=== PATIENT | female | born 1975 | race American Indian/Alaskan Native ===

== ENCOUNTER 2020-05-04 00:55 | Emergency (ER) | payer SELFPAY ==
[2020-05-04 01:17] VITALS: BP 112/79
[2020-05-04 01:42] LABS: Basophils % (Auto) 0.5 % (0.0-1.8); Eosinophils # (Auto) 0.1 K/mm3 (0.0-0.4); Eosinophils % (Auto) 1.3 % (0.0-4.3); Hematocrit 35.4 % (30.3-42.9); Hemoglobin 11.7 gm/dl (10.1-14.3); Lymphocytes # (Auto) 3.1 K/mm3 (1.2-5.4); Lymphocytes % (Auto) 34.8 % (13.4-35.0); Mean Corpuscular HGB Conc 33 % (30-34); Mean Corpuscular Volume 82 fl (79-97); Monocytes # (Auto) 0.6 K/mm3 (0.0-0.8); Monocytes % (Auto) 7.2 % (0.0-7.3); Platelet Count 283 K/mm3 (140-440); Red Cell Distribution Width 15.9 % (13.2-15.2)
[2020-05-04 01:58] LABS: Bilirubin,Urine NEG (Negative); Blood,Urine NEG (Negative); Color,Urine Colorless (Yellow); Protein,Urine <15 mg/dL mg/dL (Negative); RBC,Urine < 1.0 /HPF (0.0-6.0); Urobilinogen,Urine < 2.0 mg/dL (<2.0); WBC,Urine < 1.0 /HPF (0.0-6.0)
[2020-05-04 02:07] LABS: Alanine Aminotransferase 23 units/L (7-56); Albumin 4.2 g/dL (3.9-5); Blood Urea Nitrogen 14 mg/dL (7-17); Hemolysis Index 4
[2020-05-04 02:08] LABS: BUN/Creatinine Ratio 23
[2020-05-04] MEDS ORDERED: KETOROLAC 30 MG/1 ML INJ IM ONE (05:45)
--- NOTE | 2020-05-04 05:56 | Emergency Department Report ---
ED Abdominal Pain HPI - General Chief Complaint: Abdominal Pain Stated Complaint: ABD PAIN Source: patient, EMS Mode of arrival: Ambulatory Limitations: No Limitations - History of Present Illness Initial Comments: Patient is a 44-year-old -[place] female with a history of hypertension who presents to the ED with complaint of acute onset persistent left lower quadrant pain and left flank pain for the last 1 month. Patient states the pain is constant and persistent since onset, and worsened in the last 3 days. Patient denies fever, chills, nausea, vomiting, dysuria, urinary frequency and urgency, vaginal discharge, dyspareunia, vaginal bleeding, dizziness, syncope, low back pain, traumatic injury, heavy lifting or diarrhea. MD Complaint: abdominal pain (LLQ PAIN), flank pain (Left) -: Sudden, month(s) (1) Location: LLQ, L flank Radiation: LLQ, L flank Migration to: no migration Severity scale (0 -10): 6 Quality: cramping, sharp Consistency: constant Improves With: nothing Worsens With: nothing Associated Symptoms: denies other symptoms. denies: nausea, vomiting, diarrhea, fever, chills, constipation, dysuria, hematemesis, melena, hematuria, anorexia - Related Data LMP Date: 04/25/20 Previous Rx's Medication Instructions Recorded Last Taken Type Dicyclomine [Bentyl] 20 mg PO Q6H PRN #24 tablet 05/04/20 Unknown Rx Docusate Sodium [Colace CAP] 100 mg PO BID PRN #60 capsule 05/04/20 Unknown Rx Ketorolac [Toradol] 10 mg PO Q8H PRN #20 tablet 05/04/20 Unknown Rx Magnesium Citrate 296 ml PO ONCE #1 bottle 05/04/20 Unknown Rx Ondansetron [Zofran Odt] 4 mg PO Q6HR PRN #15 tab.rapdis 05/04/20 Unknown Rx Allergies Allergy/AdvReac Type Severity Reaction Status Date / Time No Known Allergies Allergy Unverified 05/04/20 01:09 ED Review of Systems ROS: Stated complaint: ABD PAIN Other details as noted in HPI Constitutional: denies: chills, fever Eyes: denies: eye pain, eye discharge, vision change ENT: denies: ear pain, throat pain Respiratory: denies: cough, shortness of breath, wheezing Cardiovascular: denies: chest pain, palpitations Endocrine: no symptoms reported Gastrointestinal: abdominal pain (Left lower quadrant and left flank pain). denies: nausea, diarrhea Genitourinary: denies: urgency, dysuria, discharge Musculoskeletal: denies: back pain, joint swelling, arthralgia Skin: denies: rash, lesions Neurological: denies: headache, weakness, paresthesias Psychiatric: denies: anxiety, depression Hematological/Lymphatic: denies: easy bleeding, easy bruising ED Past Medical Hx - Past Medical History Previous Medical History?: Yes Hx Hypertension: Yes - Surgical History Past Surgical History?: Yes Additional Surgical History: x 4 - Social History Smoking Status: Unknown if ever smoked - Medications Home Medications: Home Medications Medication Instructions Recorded Confirmed Last Taken Type Dicyclomine [Bentyl] 20 mg PO Q6H PRN #24 tablet 05/04/20 Unknown Rx Docusate Sodium [Colace CAP] 100 mg PO BID PRN #60 capsule 05/04/20 Unknown Rx Ketorolac [Toradol] 10 mg PO Q8H PRN #20 tablet 05/04/20 Unknown Rx Magnesium Citrate 296 ml PO ONCE #1 bottle 05/04/20 Unknown Rx Ondansetron [Zofran Odt] 4 mg PO Q6HR PRN #15 tab.rapdis 05/04/20 Unknown Rx ED Physical Exam - General Limitations: No Limitations General appearance: alert, in no apparent distress - Head Head exam: Present: atraumatic, normocephalic, normal inspection - Eye Eye exam: Present: normal appearance, PERRL, EOMI Pupils: Present: normal accommodation - ENT ENT exam: Present: normal exam, normal orophraynx, mucous membranes moist, TM's normal bilaterally, normal external ear exam - Neck Neck exam: Present: normal inspection, full ROM. Absent: tenderness - Respiratory Respiratory exam: Present: normal lung sounds bilaterally. Absent: respiratory distress, wheezes, rales, rhonchi, chest wall tenderness, accessory muscle use, decreased breath sounds, prolonged expiratory - Cardiovascular Cardiovascular Exam: Present: regular rate, normal rhythm, normal heart sounds. Absent: systolic murmur, diastolic murmur, rubs, gallop - GI/Abdominal GI/Abdominal exam: Present: soft, tenderness (Palpable left lower quadrant tenderness), normal bowel sounds. Absent: guarding, rebound, hyperactive bowel sounds, hypoactive bowel sounds, organomegaly - Extremities Exam Extremities exam: Present: normal inspection, full ROM, normal capillary refill - Back Exam Back exam: Present: normal inspection, full ROM. Absent: tenderness, CVA tenderness (R), CVA tenderness (L), muscle spasm, paraspinal tenderness - Neurological Exam Neurological exam: Present: alert, oriented X3, CN II-XII intact, normal gait, reflexes normal - Psychiatric Psychiatric exam: Present: normal affect, normal mood - Skin Skin exam: Present: warm, dry, intact, normal color. Absent: rash ED Course Vital Signs 05/04/20 01:15 Temperature 97.8 F Pulse Rate 79 Respiratory 17 Rate Blood Pressure 112/79 O2 Sat by Pulse 98 Oximetry ED Medical Decision Making - Lab Data Result diagrams: 05/04/20 01:25 05/04/20 01:25 - Radiology Data Radiology results: report reviewed, image reviewed Findings [address] [address] Cat Scan Report Signed Patient: BEBE WOOD MR#: [id number] : 1975 Acct:[id number] Age/Sex: 44 / F ADM Date: 05/04/20 Loc: ED Attending Dr: Ordering Physician: KASH ALANIS Date of Service: 05/04/20 Procedure(s): CT abdomen pelvis wo con Accession Number(s): [id number] cc: KASH ALANIS CT abdomen pelvis wo con INDICATION / CLINICAL INFORMATION: LT flank / L.L.Q. pain x 1 month. Hx of 4 previous C-Sections. TECHNIQUE: Axial CT imaging of abdomen and pelvis was obtained without contrast. Coronal and sagittal reformatted imaging obtained and reviewed. All CT scans at this location are performed using CT dose reduction for ALARA by means of automated exposure control. COMPARISON: None available. FINDINGS: CT abdomen without contrast demonstrates normal appearance of the liver, spleen, pancreas, kidneys, and adrenal glands. Gallbladder is grossly unremarkable. No intrarenal calculi or hydronephrosis noted. CT pelvis without contrast demonstrates mild diffuse uterine enlargement. Normal appearance of the appendix. Mild to moderate amount of stool is seen throughout the colon and rectum suggesting constipation. The remainder of the GI tract is unremarkable. No free air or free fluid present. Visualized lung bases are clear. No significant acute osseous abnormality identified. IMPRESSION: 1. No acute abnormality within the abdomen or pelvis. 2. Mild uterine enlargement. 3. Moderate amount retained stool is present throughout the colon and rectum suggesting constipation. Signer Name: Kay Siegel MD Signed: 05/04/2020 6:43 AM Workstation Name: [id number] Transcribed By: Dictated By: Kay Siegel MD Electronically Authenticated By: Kay Siegel MD Signed Date/Time: 05/04/20642 DD/ 9 TD/TT: - Medical Decision Making This is a 44-year-old -[place] female with a history of hypertension who presents to the ED with complaint of acute onset persistent left lower quadrant pain and left flank pain for the last 1 month. Patient states the pain is constant and persistent since onset, and worsened in the last 3 days. In the ED, patient is alert and oriented x3 and is not in distress. Patient was treated for pain in the ED and lab test results were reviewed and are all nonactionable. Abdomen pelvis CT scan without contrast showed no acute abnormalities in the abdomen and pelvis but moderate stool in the colon consist ent with constipation. On reevaluation, patient's pain is well controlled medications. Patient was discharged home on pain medications and stool softeners and was asked advised to follow-up with her primary care physician in 5 to 7 days for reevaluation. Patient is advised return to the ED immediately if symptoms get worse. - Differential Diagnosis Diverticulitis; ovarian cyst; UTI; kidney stone; ; constipation Critical care attestation.: If time is entered above; I have spent that time in minutes in the direct care of this critically ill patient, excluding procedure time. ED Disposition Clinical Impression: Acute abdominal pain in left lower quadrant Constipation Qualifiers: Constipation type: other constipation type Qualified Code(s): K59.09 - Other constipation Disposition: DC-01 TO HOME OR SELFCARE Is pt being admited?: No Does the pt Need Aspirin: No Condition: Stable Instructions: Abdominal Pain, Adult, [id number], Abdominal Pain (ED), Constipation, Adult, [id number] Additional Instructions: Take medication with food, drink plenty of fluids and follow-up with your primary care physician in 5 to 7 days for reevaluation. Return to the ED immediately if symptoms get worse. Prescriptions: Dicyclomine [Bentyl] 20 mg PO Q6H PRN #24 tablet PRN Reason: Abdominal pain Docusate Sodium [Colace CAP] 100 mg PO BID PRN #60 capsule PRN Reason: Constipation Magnesium Citrate 296 ml PO ONCE #1 bottle Ketorolac [Toradol] 10 mg PO Q8H PRN #20 tablet PRN Reason: Pain Ondansetron [Zofran Odt] 4 mg PO Q6HR PRN #15 tab.rapdis PRN Reason: Nausea Referrals: [facility] [Provider Group] - 7-10 days Forms: Work/School Release Form(ED) Time of Disposition: 05:59 Print Language: GERMAN
--- NOTE | 2020-05-04 06:48 | Cat Scan Report ---
CT abdomen pelvis wo con INDICATION / CLINICAL INFORMATION: LT flank / L.L.Q. pain x 1 month. Hx of 4 previous C-Sections. TECHNIQUE: Axial CT imaging of abdomen and pelvis was obtained without contrast. Coronal and sagittal reformatte d imaging obtained and reviewed. All CT scans at this location are performed using CT dose reduction for ALARA by means of automated exposure control. COMPARISON: None available. FINDINGS: CT abdomen without contrast demonstrates normal appearance of the liver, spleen, pancreas, kidneys, a nd adrenal glands. Gallbladder is grossly unremarkable. No intrarenal calculi or hydronephrosis noted . CT pelvis without contrast demonstrates mild diffuse uterine enlargement. Normal appearance of the ap pendix. Mild to moderate amount of stool is seen throughout the colon and rectum suggesting constipat ion. The remainder of the GI tract is unremarkable. No free air or free fluid present. Visualized lung bases are clear. No significant acute osseous abnormality identified. IMPRESSION: 1. No acute abnormality within the abdomen or pelvis. 2. Mild uterine enlargement. 3. Moderate amount retained stool is present throughout the colon and rectum suggesting constipation. Signer Name: Kay Siegel MD Signed: 05/04/2020 6:43 AM Workstation Name: [id number]
== END 2020-05-04 07:16 | disposition home or self-care (01) ==
LOC: ED 00:55
DX: K59.00 Constipation, unspecified (principal); R10.32 Left lower quadrant pain; I10 Essential (primary) hypertension; Z98.890 Other specified postprocedural states; Z79.899 Other long term (current) drug therapy
CPT/HCPCS: 36415; 74176; 80053; 81001; 84703; 85025; 96372; 99284; J1885